=== PATIENT | female | born 1945 | race Caucasian/White ===

== ENCOUNTER → 2016-09-19 | Outpatient (CLI) | payer OTHER | LOC: FIMAGING 08:47 | PROVIDERS: ATTEND Family Medicine Sports Medicine | DX: Z13.820 Encounter for screening for osteoporosis (principal); M81.0 Age-related osteoporosis without current pathological fracture ==

== ENCOUNTER → 2016-10-04 | Outpatient (CLI) | payer OTHER | LOC: FIMAGING 15:04 | PROVIDERS: ATTEND Physician Assistant | DX: R05 Cough (principal) ==

== ENCOUNTER → 2017-01-08 | Outpatient (CLI) | payer OTHER | LOC: FIMAGING 09:19 | PROVIDERS: ATTEND Family Medicine Sports Medicine | DX: Z12.31 Encounter for screening mammogram for malignant neoplasm of breast (principal); Z80.3 Family history of malignant neoplasm of breast | CPT/HCPCS: G0202 ==

== ENCOUNTER → 2017-03-26 | Outpatient (CLI) | payer OTHER | LOC: CIMAGING 11:28 | PROVIDERS: ATTEND Family Medicine Sports Medicine | DX: J47.9 Bronchiectasis, uncomplicated (principal) | CPT/HCPCS: 71250-PO ==

== ENCOUNTER 2017-05-30 13:01 | Day surgery (SDC) | payer OTHER ==
[~2017-05-30 13:01] MED LIST: ALBUTEROL 3 ML DEYVIAL ONE; LIDOCAINE 1% 300 MG/30 ML SDV ONE; LIDOCAINE 2% JELLY 5 ML TUBE ONE
[2017-05-30 13:45] VITALS: PULSE 65; TEMP 97.9
[2017-05-30] MEDS ORDERED: NS 500 ML IV ONE (13:45)
[2017-05-30] MEDS ORDERED: fentaNYL 100 MCG/2 ML INJ ONE (14:12)
[2017-05-30] MEDS ORDERED: MIDAZOLAM 2 MG/2 ML VIAL ONE (14:12)
--- NOTE | 2017-05-30 14:34 | PDPROPOC ---
Sedation Plan of Care Sedation Plan of Care: vital signs stable, mental status noted, patient educated of risks, benefits, alternatives, patient can tolerate sedation ASA Classification: ASA 1 Planned drugs: fentanyl, midazolam Mallampati Score: Class 1 Mallampati Reference Image: Patient passed 3-3-2 rule?: Yes
[2017-05-30] MEDS ORDERED: fentaNYL 100 MCG/2 ML INJ IVP ONE (15:02)
[2017-05-30] MEDS ORDERED: MIDAZOLAM 10 MG/2 ML VIAL IVP ONE (15:02)
--- NOTE | 2017-05-30 15:16 | BVPULMO ---
[facility] Surgical Services- Pulmonology Patient Name: Tamar Smith Procedure Date: 05/30/2017 3:04 PM Patient Type: Outpatient Attending MD/ER Physician: Dong Carey MD Procedure: Bronchoscopy Indications: Chronic cough with abnormal CT Providers: Dong Carey MD Medicines: Lidocaine 4% via nebulizer with Albuterol 3 mg, Fentanyl 100 mcg IV Complications: No immediate complications. Estimated blood loss: None Procedure: After informed consent, a time out was performed. N95 masks were worn, and the procedure was done in a negative pressure room. The patient was given appropria te topical anesthesia and intravenous sedation. The fiberopic bronchoscope was pas sed via a bite block orally into the larynx and subsequently into the lower trachea bronchial tree. Throughout the procedure, the patient's blood pressure, pulse, and oxygen saturations were monitored continuously. The Bronchoscope (Video) was introduced through the mouth and advanced to the tracheobronchial tree of both lungs. The procedure was accomplished without difficulty. The patient tolerated the procedure well. Findings: The oropharynx appears normal. The larynx appears normal. The vocal cords appea r normal. The subglottic space is normal. The trachea is of normal caliber. The c mily is sharp. The tracheobronchial tree was examined to at least the first subsegme ntal level. Bronchial mucosa and anatomy are normal; there are no endobronchial lesi ons. Secretions were scattered bilatterally. Washings were obtained in the right middle lobe, in the lateral segment of the right middle lobe, in the medial segment of the right middle lobe, in the superior li ngula segment of the left upper lobe and in the inferior lingula segment of the left upper lobe. The return was cloudy. [Multi specimens]. Post Op Diagnosis: - Modest bilat secretions were present.. - Bilat Bronch wash was obtained. Sent for cultures and cytologies. Estimated Blood Loss: Estimated blood loss: none. Recommendation: - Await washing results. Dong Carey MD Dong Carey MD 05/30/2017 3:15:45 PM This report has been signed electronicallyHuntjhony Carey MD Number of Addenda: 0 Note Initiated On: 05/30/2017 3:04 PM [email or web address]
[2017-05-30 15:41] VITALS: BP 108/76; RESP 14
[2017-05-30 15:42] VITALS: O2SAT 92
== END 2017-05-30 15:53 | disposition home or self-care (01) ==
LOC: FSGY 13:01
PROVIDERS: ATTEND Internal Medicine Pulmonary Disease
DX: J47.9 Bronchiectasis, uncomplicated (principal); R05 Cough; G47.33 Obstructive sleep apnea (adult) (pediatric); I10 Essential (primary) hypertension; E78.5 Hyperlipidemia, unspecified
CPT/HCPCS: J2250; J3010

== ENCOUNTER → 2018-04-26 | Outpatient (CLI) | payer OTHER | LOC: FIMAGING 04-22 09:06 | PROVIDERS: ATTEND Family Medicine Sports Medicine | DX: M85.80 Other specified disorders of bone density and structure, unspecified site (principal); Z78.0 Asymptomatic menopausal state; F41.1 Generalized anxiety disorder; J47.9 Bronchiectasis, uncomplicated; L30.9 Dermatitis, unspecified ==